=== PATIENT | male | born 1995 | race Caucasian/White ===

== ENCOUNTER 2016-12-25 23:12 | Emergency (ER) | payer OTHER ==
[2016-12-26] MEDS ORDERED: NS 0.9% 1000 ML* 1,000 ML IV ONE (00:13)
[2016-12-26 00:34] LABS: Urine Bilirubin Negative (Negative); Urine Glucose Negative (Negative); Urine Nitrite Negative (Negative)
[2016-12-26 00:45] LABS: Hematocrit 48 % (42-52); Hemoglobin 16.4 g/dl (14.0-18.0); Mean Corpuscular HGB Conc 34 g/dl (31-36); Mean Corpuscular Hemoglobin 32 pg (27-31); Mean Corpuscular Volume 92 fL (80-94); Mean Platelet Volume 7 um3 (7.4-10.4); Red Blood Count 5.23 10^6/ul (4.0-5.4); Red Cell Distribution Width 13 % (10.5-15); White Blood Count 7.2 10^3/ul (3.5-10.8)
[2016-12-26 00:53] LABS: Benzodiazepine Urine Screen None Detected (None Detect)
[2016-12-26 01:03] LABS: ALT 9 U/L (7-52); AST 13 U/L (13-39); Acetaminophen < 15 mcg/mL; Albumin 5.2 g/dL (3.2-5.2); Alcohol < 10 mg/dL (<10); Alkaline Phosphatase 58 U/L (34-104); Anion Gap 7 mmol/L (2-11); BUN/Creatinine Ratio 9.3 (8-20); Blood Urea Nitrogen 9 mg/dL (6-24); CO2 Carbon Dioxide 26 mmol/L (22-32); Calcium 10.2 mg/dL (8.6-10.3); Chloride 106 mmol/L (101-111); EGFR African American 123.3 (>60); EGFR Non-African American 95.9 (>60); Globulin 2.7 g/dL (2-4); Glucose 128 mg/dL (70-100); Potassium 3.6 mmol/L (3.5-5.0); Salicylate < 2.50 mg/dL (<30); Sodium 139 mmol/L (133-145); Total Protein 7.9 g/dL (6.4-8.9)
[2016-12-26 01:13] LABS: TSH (Thyroid Stimulating Horm) 1.75 mcIU/mL (0.34-5.60)
--- NOTE | 2016-12-26 01:31 | ED ---
Coral Turner Thomas, scribed for Zander Viera MD on 12/26/16 at 0052 . Complex/Multi-Sys Presentation - HPI Summary HPI Summary: The pt is a 21 y/o M presenting to the ED complaining of messed up insides s/ p snorting 8 tablets of Adderall 40mg in the last 48 hours. He also reports taking Tylenol and codeine shortly prior to arrival. He denies SI at this time. When asked why he snorted the Adderall, he responds Im stupid. He additionally c/o back pains. He denies ever snorting Adderall before. He also reports recent marijuana use at an unspecified time. He describes his current level of pain 02/11. Pt denies any other complaints at this time. PMHx: seasonal allergies. PSHx: rotator cuff repair. SHx: smokeless tobacco, rare alcohol use. FHx: DM. - History Of Current Complaint Chief Complaint: EDChestPainROMI Time Seen by Provider: 12/26/16 00:09 Hx Obtained From: Patient, Family/Smalltalk Developer - girlfirend in room Onset/Duration: Lasting Hours - snorted Adderal in last 48 hours, Still Present Timing: Constant Aggravating Factor(s): None Alleviating Factor(s): None Associated Signs And Symptoms: Positive: Back Pain, Other - POS: snorting 8 tablets of 40mg Adderall over last 48 hours, "messed up insides" - Allergies/Home Medications Allergies/Adverse Reactions: Allergies Allergy/AdvReac Type Severity Reaction Status Date / Time Penicillins Allergy Hair Loss Verified 12/25/16 23:22 PMH/Surg Hx/FS Hx/Imm Hx Previously Healthy: No Cardiovascular History: Denies: Hx Myocardial Infarction Respiratory History: Reports: Hx Seasonal Allergies - Surgical History Surgery Procedure, Year, and Place: None - Immunization History Date of Tetanus Vaccine: unk Date of Influenza Vaccine: unk Infectious Disease History: No Infectious Disease History: Denies: Traveled Outside the [place] in Last 30 Days - Family History Known Family History: Positive: Other - POS: DM - Social History Alcohol Use: Occasionally Substance Use Type: Reports: Cocaine, Heroin, Marijuana Substance Use Comment - Amount & Last Used: snorted adderall and vicodin today Smoking Status (MU): Never Smoked Tobacco Review of Systems Negative: Fever Positive: Other - POS: "messed up insides", back pain Positive: Other - POS: snorted 8 tablets of 40mg adderall over last 48 hours. All Other Systems Reviewed And Are Negative: Yes Physical Exam Triage Information Reviewed: Yes Vital Signs On Initial Exam: Initial Vitals Temp Pulse Resp BP Pulse Ox 97.5 F 115 20 128/92 100 12/25/16 23:16 12/25/16 23:16 12/25/16 23:16 12/25/16 23:16 12/25/16 23:16 Vital Signs Reviewed: Yes Appearance: Positive: Well-Appearing, No Pain Distress Skin: Positive: Warm Head/Face: Positive: Normal Head/Face Inspection Eyes: Positive: SULAIMAN ENT: Positive: Hearing grossly normal Neck: Positive: Supple Respiratory/Lung Sounds: Positive: Breath Sounds Present Cardiovascular: Positive: RRR Abdomen Description: Positive: Nontender, Soft Bowel Sounds: Positive: Present Musculoskeletal: Positive: Strength/ROM Intact Neurological: Positive: Alert, Oriented to Person Place, Time - Tammy Coma Scale Coma Scale Total: 15 Diagnostics - Vital Signs Vital Signs Temp Pulse Resp BP Pulse Ox 12/25/16 23:22 97.5 F 115 20 128/92 100 12/25/16 23:16 97.5 F 115 20 128/92 100 - Laboratory Lab Results: Lab Results 12/26/16 12/26/16 Range/Units 00:25 00:35 WBC 7.2 (3.5-10.8) 10^3/ul RBC 5.23 (4.0-5.4) 10^6/ul Hgb 16.4 (14.0-18.0) g/dl Hct 48 (42-52) % MCV 92 (80-94) fL MCH 32 H (27-31) pg MCHC 34 (31-36) g/dl RDW 13 (10.5-15) % Plt Count 311 (150-450) 10^3/ul MPV 7 L (7.4-10.4) um3 Neut % (Auto) 73.2 (38-83) % Lymph % (Auto) 16.1 L (25-47) % [place] % (Auto) 8.0 (1-9) % Eos % (Auto) 2.2 (0-6) % Baso % (Auto) 0.5 (0-2) % Absolute Neuts (auto) 5.3 (1.5-7.7) 10^3/ul Absolute Lymphs (auto) 1.2 (1.0-4.8) 10^3/ul Absolute Monos (auto) 0.6 (0-0.8) 10^3/ul Absolute Eos (auto) 0.2 (0-0.6) 10^3/ul Absolute Basos (auto) 0 (0-0.2) 10^3/ul Absolute Nucleated RBC 0 10^3/ul Nucleated RBC % 0 Urine Color Straw Urine Appearance Clear Urine pH 8.0 (5-9) Ur Specific [place] 1.004 L (1.010-1.030) Urine Protein Negative (Negative) Urine Ketones Negative (Negative) Urine Blood Negative (Negative) Urine Nitrate Negative (Negative) Urine Bilirubin Negative (Negative) Urine Urobilinogen Negative (Negative) Ur Leukocyte Esterase Negative (Negative) Urine Glucose Negative (Negative) Result Diagrams: 12/26/16 00:35 12/26/16 00:35 Lab Statement: Any lab studies that have been ordered have been reviewed, and results considered in the medical decision making process. - EKG 23:28 Cardiac Rate: NL - 96 BPM EKG Interpretation: SR. APC. Complex Multi-Symp Course/Dx Assessment/Plan: The pt is a 21 y/o M presenting to the ED complaining of messed up insides s/p snorting 8 tablets of Adderall 40mg in the last 48 hours. He also reports taking Tylenol and codeine shortly prior to arrival. He denies SI at this time. When asked why he snorted the Adderall, he responds I m stupid. He additionally c/o back pains. He denies ever snorting Adderall before. He also reports recent marijuana use at an unspecified time. He describes his current level of pain 02/11. Pt denies any other complaints at this time. PMHx: seasonal allergies. PSHx: rotator cuff repair. SHx: smokeless tobacco, rare alcohol use. FHx: DM. Blood work shows Glucose 128. UA shows specific gravity 1.004. Urine toxicology reveals presumptive positive opiates, amphetamines, and cannabinoids. EKG reveals Sinus rhythm with APC. Patient is medically cleared for evaluation. Patient is signed out from Dr. Viera to Dr. Villa pending [facility]. - Diagnoses Provider Diagnoses: Drug overdose Discharge - Discharge Plan Condition: Fair Disposition: OTHER Discharge Disposition Comment: Signed out from Dr. Viera to Dr. Villa pending [facility]. Referrals: Non Staff,Doctor [Primary Care Provider] - The documentation as recorded by the Coral zhang Thomas accurately reflects the service I personally performed and the decisions made by , Zander Viera MD.
[2016-12-26 09:32] VITALS: BP 121/76
--- NOTE | 2016-12-26 09:36 | CONSULT ---
Consult Consult: Mr. Morin was seen on an earlier shift and medically cleared. He had snorted Vicodin due to the pain in his shoulder. He consistently denied SI while here but admitted that he was having substance abuse problems and wanted to get into counseling for that. He was seen by the [facility] who gave him resources and he was D /C'd in stable condition diagnosis of unintentional OD.
== END 2016-12-26 09:46 ==
LOC: ED 23:12
DX: T43.621A Poisoning by amphetamines, accidental (unintentional), initial encounter (principal); M54.9 Dorsalgia, unspecified; Y92.9 Unspecified place or not applicable
CPT/HCPCS: 36415; 80053; 80307; 80320; 80329; 81003; 84443; 84484; 85025; 93005; 99284; G0480

== ENCOUNTER 2017-01-11 03:10 | Emergency (ER) | payer OTHER ==
[2017-01-11] MEDS ORDERED: NS 0.9% 1000 ML* 2,000 ML IV ONE (03:12)
[2017-01-11] MEDS ORDERED: Metoprolol Tartrate IV* 1 MG/ML 5 ML VIAL IV ONE (03:32)
[2017-01-11 03:55] LABS: Hematocrit 44 % (42-52); Hemoglobin 14.8 g/dl (14.0-18.0); Mean Corpuscular HGB Conc 34 g/dl (31-36); Mean Corpuscular Hemoglobin 32 pg (27-31); Mean Corpuscular Volume 94 fL (80-94); Mean Platelet Volume 7 um3 (7.4-10.4); Red Cell Distribution Width 13 % (10.5-15); White Blood Count 18.3 10^3/ul (3.5-10.8)
[2017-01-11 04:06] LABS: ALT 36 U/L (7-52); AST 40 U/L (13-39); Albumin 4.6 g/dL (3.2-5.2); Alkaline Phosphatase 58 U/L (34-104); Anion Gap 7 mmol/L (2-11); BUN/Creatinine Ratio 14.9 (8-20); Blood Urea Nitrogen 17 mg/dL (6-24); CO2 Carbon Dioxide 27 mmol/L (22-32); Calcium 8.9 mg/dL (8.6-10.3); Chloride 103 mmol/L (101-111); Creatine Kinase 55 U/L (10-223); EGFR African American 102.4 (>60); EGFR Non-African American 79.6 (>60); Globulin 2.2 g/dL (2-4); Glucose 425 mg/dL (70-100); Potassium 4.7 mmol/L (3.5-5.0); Sodium 137 mmol/L (133-145); Total Protein 6.8 g/dL (6.4-8.9)
[2017-01-11 04:13] LABS: Acetaminophen < 15 mcg/mL; Alcohol < 10 mg/dL (<10); Salicylate < 2.50 mg/dL (<30)
[2017-01-11 04:20] LABS: C Reactive Protein < 1.00 mg/L (< 5.00)
[2017-01-11 07:02] VITALS: BP 107/65
--- NOTE | 2017-01-11 07:32 | ED ---
Rizwana Turner Emily, scribed for Renato Wright MD on 01/11/17 at 0429 . Substance Abuse/Use - HPI Summary HPI Summary: LEVEL 5 CAVEAT - SUBSTANCE OD This patient is a 21 year old M BIBA to [facility] with a substance OD, most likely heroin. According to warp yarn sorter: Patient took 2 lines of heroin up the nose. He was found on floor unresponsive. 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 Patient says he has not used heroine in a long time, and he does not inject it. - History Of Current Complaint Chief Complaint: EDSubstanceAbuse Stated Complaint: OVERDOSE Time Seen by Provider: 01/11/17 03:12 Hx From Patient Unobtainable Due To: Other - Substance OD - Allergies/Home Medications Allergies/Adverse Reactions: Allergies Allergy/AdvReac Type Severity Reaction Status Date / Time Penicillins Allergy Hair Loss Verified 12/25/16 23:22 PMH/Surg Hx/FS Hx/Imm Hx Previously Healthy: No - LEVEL 5 CAVEAT - SUBSTANCE OD Cardiovascular History: Denies: Hx Myocardial Infarction Respiratory History: Reports: Hx Seasonal Allergies - Surgical History Surgery Procedure, Year, and Place: None - Immunization History Date of Tetanus Vaccine: unk Date of Influenza Vaccine: unk Infectious Disease History: Denies: Traveled Outside the [place] in Last 30 Days - Family History Known Family History: Positive: Other - POS: DM Family History: LEVEL 5 CAVEAT - SUBSTANCE OD - Social History Alcohol Use: Occasionally Substance Use Type: Reports: Cocaine, Heroin, Marijuana Substance Use Comment - Amount & Last Used: snorted adderall and vicodin today Smoking Status (MU): Never Smoked Tobacco Review of Systems - ROS Summary Review of Systems Summary: LEVEL 5 CAVEAT - SUBSTANCE OD All Other Systems Reviewed And Are Negative: No Physical Exam - Summary Physical Exam Summary: LEVEL 5 CAVEAT - SUBSTANCE OD The patient is well-nourished. Somnolent but arousable. The skin is warm and dry and skin color reflects adequate perfusion. HEENT: The head is normocephalic and atraumatic. The pupils are equal and reactive. Pupils are not pinpoint. The conjunctivae are clear and without drainage. Nares are patent and without drainage. Dry oral mucosa. The throat is without erythema and exudate. The external ears are intact. The ear canals are patent and without drainage. The tympanic membranes are intact. Neck is supple with full range of motion and non-tender. There are no carotid bruits. There is no neck vein distension. Respiratory: Chest is non-tender. Lungs are clear to auscultation and breath sounds are symmetrical and equal. Cardiovascular: Heart is regular rhythm. There is no murmur or rub auscultated. There is no peripheral edema and pulses are symmetrical and equal. Regular but fast heart rate. Decreased capillary refill. Abdomen: The abdomen is soft and non-tender. There are normal bowel sounds heard in all four quadrants and there is no organomegaly palpated. Musculoskeletal: There is no back pain noted. Extremities are non-tender with full range of motion. There is good capillary refill. There is no peripheral edema or calf tenderness elicited. Neurological: Unable to assess neurologically due to substance OD. Psychiatric: The patient has an appropriate affect and does not exhibit any anxiety or depression. Triage Information Reviewed: Yes Vital Signs On Initial Exam: Initial Vitals Temp Pulse Resp BP Pulse Ox 97.4 F 137 18 103/90 99 01/11/17 03:12 01/11/17 03:12 01/11/17 03:12 01/11/17 03:12 01/11/17 03:12 Vital Signs Reviewed: Yes - [place] Coma Scale Coma Scale Total: 15 Diagnostics - Vital Signs Vital Signs Temp Pulse Resp BP Pulse Ox 01/11/17 03:16 97.4 F 137 18 103/90 99 01/11/17 03:12 97.4 F 137 18 103/90 99 - Laboratory Lab Results: Lab Results 01/11/17 01/11/17 01/11/17 Range/Units 03:25 03:25 03:25 WBC 18.3 H (3.5-10.8) 10^3/ul RBC 4.70 (4.0-5.4) 10^6/ul Hgb 14.8 (14.0-18.0) g/dl Hct 44 (42-52) % MCV 94 (80-94) fL MCH 32 H (27-31) pg MCHC 34 (31-36) g/dl RDW 13 (10.5-15) % Plt Count 225 (150-450) 10^3/ul MPV 7 L (7.4-10.4) um3 Neut % (Auto) 88.9 H (38-83) % Lymph % (Auto) 6.1 L (25-47) % [place] % (Auto) 4.1 (1-9) % Eos % (Auto) 0.8 (0-6) % Baso % (Auto) 0.1 (0-2) % Absolute Neuts (auto) 16.2 H (1.5-7.7) 10^3/ul Absolute Lymphs (auto) 1.1 (1.0-4.8) 10^3/ul Absolute Monos (auto) 0.8 (0-0.8) 10^3/ul Absolute Eos (auto) 0.1 (0-0.6) 10^3/ul Absolute Basos (auto) 0 (0-0.2) 10^3/ul Absolute Nucleated RBC 0.01 10^3/ul Nucleated RBC % 0 INR (Anticoag Therapy) (0.89-1.11) Sodium 137 (133-145) mmol/L Potassium 4.7 (3.5-5.0) mmol/L Chloride 103 (101-111) mmol/L Carbon Dioxide 27 (22-32) mmol/L Anion Gap 7 (2-11) mmol/L BUN 17 (6-24) mg/dL Creatinine 1.14 (0.67-1.17) mg/dL Est GFR ( Amer) 102.4 (>60) Est GFR (Non-Af Amer) 79.6 (>60) BUN/Creatinine Ratio 14.9 (8-20) Glucose 425 H (70-100) mg/dL Lactic Acid 2.8 H* (0.5-2.0) mmol/L Calcium 8.9 (8.6-10.3) mg/dL Total Bilirubin 0.30 (0.2-1.0) mg/dL AST 40 H (13-39) U/L ALT 36 (7-52) U/L Alkaline Phosphatase 58 (34-104) U/L Total Creatine Kinase 55 (10-223) U/L Troponin I 0.00 (<0.04) ng/mL C-Reactive Protein < 1.00 (< 5.00) mg/L B-Natriuretic Peptide ( - 100) pg/mL Total Protein 6.8 (6.4-8.9) g/dL Albumin 4.6 (3.2-5.2) g/dL Globulin 2.2 (2-4) g/dL Albumin/Globulin Ratio 2.1 (1-3) Salicylates < 2.50 (<30) mg/dL Acetaminophen < 15 mcg/mL Serum Alcohol < 10 (<10) mg/dL 01/11/17 01/11/17 Range/Units 03:25 03:25 WBC (3.5-10.8) 10^3/ul RBC (4.0-5.4) 10^6/ul Hgb (14.0-18.0) g/dl Hct (42-52) % MCV (80-94) fL MCH (27-31) pg MCHC (31-36) g/dl RDW (10.5-15) % Plt Count (150-450) 10^3/ul MPV (7.4-10.4) um3 Neut % (Auto) (38-83) % Lymph % (Auto) (25-47) % [place] % (Auto) (1-9) % Eos % (Auto) (0-6) % Baso % (Auto) (0-2) % Absolute Neuts (auto) (1.5-7.7) 10^3/ul Absolute Lymphs (auto) (1.0-4.8) 10^3/ul Absolute Monos (auto) (0-0.8) 10^3/ul Absolute Eos (auto) (0-0.6) 10^3/ul Absolute Basos (auto) (0-0.2) 10^3/ul Absolute Nucleated RBC 10^3/ul Nucleated RBC % INR (Anticoag Therapy) 1.00 (0.89-1.11) Sodium (133-145) mmol/L Potassium (3.5-5.0) mmol/L Chloride (101-111) mmol/L Carbon Dioxide (22-32) mmol/L Anion Gap (2-11) mmol/L BUN (6-24) mg/dL Creatinine (0.67-1.17) mg/dL Est GFR ( Amer) (>60) Est GFR (Non-Af Amer) (>60) BUN/Creatinine Ratio (8-20) Glucose (70-100) mg/dL Lactic Acid (0.5-2.0) mmol/L Calcium (8.6-10.3) mg/dL Total Bilirubin (0.2-1.0) mg/dL AST (13-39) U/L ALT (7-52) U/L Alkaline Phosphatase (34-104) U/L Total Creatine Kinase (10-223) U/L Troponin I (<0.04) ng/mL C-Reactive Protein (< 5.00) mg/L B-Natriuretic Peptide 31 ( - 100) pg/mL Total Protein (6.4-8.9) g/dL Albumin (3.2-5.2) g/dL Globulin (2-4) g/dL Albumin/Globulin Ratio (1-3) Salicylates (<30) mg/dL Acetaminophen mcg/mL Serum Alcohol (<10) mg/dL Result Diagrams: 01/11/17 03:25 01/11/17 03:25 Lab Statement: Any lab studies that have been ordered have been reviewed, and results considered in the medical decision making process. - Radiology CXR Xray Interpretation: No Acute Changes - Nml, unchanged from previous CXR, no active disease, and no PNA or PTX. Radiology Interpretation Completed By: ED Physician - EKG 0317 EKG Rhythm: Atrial Fibrillation - At 128 BPM. EKG Interpretation: Rapid ventricular response. 0342 Cardiac Rate: Tachycardia - 103 BPM EKG Rhythm: Sinus Rhythm EKG Interpretation: Non-specific ST changes Re-Evaluation - Re-Evaluation First Eval Re-Evaluation Time: 04:12 Change: Improved Comment: Patient was alert and conversing. States feeling better. Second Eval Re-Evaluation Time: 06:50 Change: Improved Comment: Discussed dispo with patient. Course/Dx - Course Course Of Treatment: This patient is a 21 year old M BIBA to [facility] with a substance OD, most likely heroin. According to warp yarn sorter: Patient took 2 lines of heroin up the nose. He was found on floor unresponsive. 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 Patient says he has not used heroine in a long time, and he does not inject it. Physical Exam Findings. Pupils not pinpoint. Somnolent but arousable. Dry oral mucosa. Regular but fast heart rate. Decreased capillary refill. Unable to assess neurologically. Medical Decision Making. An EKG at 0317 reveals A-fib at 128 with rapid ventricular response. An EKG at 0342 reveals sinus tachycardia at 103 BPM with non-specific ST changes. Patient had a run of A-Fib most likely due to withdrawl. CXR read by ED physician is nml, unchanged from previous CXR, no active disease, and no PNA or PTX. In the ED course the patient was given Lopressor IV and fluids. Patient will be discharged with follow up from [facility] [place] referral. The patient is agreeable with this plan. - Diagnoses Provider Diagnoses: Heroin overdose, Atrial fibrillation, Opioid withdrawal Discharge - Discharge Plan Condition: Stable Disposition: HOME Patient Education Materials: A-fib (Atrial Fibrillation) (ED), Narcotic Abuse ( ED), Adult Overdose (ED) Referrals: [facility] PHYSICIAN REFERRAL [Outside] Non Staff,Doctor [Primary Care Provider] - Additional Instructions: Establish and follow up with a primary care provider within the week. Please return to the ED if you experience new or worsening symptoms. The documentation as recorded by the Rizwana zhang Emily accurately reflects the service I personally performed and the decisions made by , Renato Wright MD.
--- NOTE | 2017-01-11 08:58 | RAD ---
INDICATION: Drug overdose COMPARISON: Similar chest x-ray dated October 12, 2012 TECHNIQUE: Single AP portable view of the chest was obtained. FINDINGS: Image quality is compromised due to the relative inferiority of a portable chest x-ray. The heart and mediastinum exhibit normal size and contour. The lungs are grossly clear. There is no evidence of a large pleural effusion. Visualized bones are normal for the patient's age. IMPRESSION: No radiographic evidence for acute cardiopulmonary abnormality on this portable chest x-ray.
== END 2017-01-11 07:03 | disposition home or self-care (01) ==
LOC: ED 03:10
DX: T40.1X1A Poisoning by heroin, accidental (unintentional), initial encounter (principal); Y92.9 Unspecified place or not applicable; I48.91 Unspecified atrial fibrillation; F11.23 Opioid dependence with withdrawal
CPT/HCPCS: 36415; 71010; 80053; 80320; 80329; 82550; 83605; 83880; 84484; 85025; 85610; 86140; 93005; 96360; 99283; G0480

== ENCOUNTER 2017-04-27 20:50 | Emergency (ER) | payer SELFPAY ==
[2017-04-27] MEDS ORDERED: NS 0.9% 1000 ML* 1,000 ML IV SCH (21:00)
[2017-04-27] MEDS: NS 0.9% 1000 ML* 2,000 ML IV ONE (21:34)
[2017-04-27 21:36] LABS: ABS Basophils 0 10^3/ul (0-0.2); ABS Eosinophils 0.2 10^3/ul (0-0.6); ABS Lymphocytes 1.1 10^3/ul (1.0-4.8); ABS Monocytes 0.6 10^3/ul (0-0.8); ABS Neutrophils 10.3 10^3/ul (1.5-7.7); ABS Nucleated RBC 0 10^3/ul; Eosinophil % 1.5 % (0-6); Hematocrit 42 % (42-52); Hemoglobin 14.1 g/dl (14.0-18.0); Mean Corpuscular HGB Conc 34 g/dl (31-36); Mean Corpuscular Hemoglobin 31 pg (27-31); Mean Corpuscular Volume 93 fL (80-94); Mean Platelet Volume 7 um3 (7.4-10.4); Nucleated Red Blood Cells % 0; Platelet Count 285 10^3/ul (150-450); Red Cell Distribution Width 13 % (10.5-15); White Blood Count 12.2 10^3/ul (3.5-10.8)
[2017-04-27 21:49] LABS: EGFR Non-African American 98.2 (>60)
--- NOTE | 2017-04-27 22:27 | ED ---
Gualberto Turner Tecjoon, scribed for Jose Roberto Decker MD on 04/27/17 at 2107 . Substance Abuse/Use - HPI Summary HPI Summary: This patient is a 21 year old male BIBA to [facility] with concerns of an opioid overdose. Patient was found on the floor, not breathing. He states that he took a 30 mg oxymorphone hydrochloride pill a few hours ago when he began to feel extremely tired. Patient does not remember anything afterwards. EMS states that 2 mg Narcan relieved him and at time of exam, he was awake and alert, if slightly tachycardic. Patient denies any myalgia, trauma from fall, or any discrete pain. - History Of Current Complaint Stated Complaint: OVERDOSE Hx Obtained From: Patient Onset/Duration of Drug/ETOH Abuse: Hours Overdose Characteristics: Oral Character: Lethargic Alleviating Factor(s): Medication - Narcan Associated Signs And Symptoms: Negative - any discrete pain, myalgia, trauma from fall, Other: - tachycardia - Allergies/Home Medications Allergies/Adverse Reactions: Allergies Allergy/AdvReac Type Severity Reaction Status Date / Time Penicillins Allergy Hair Loss Verified 12/25/16 23:22 PMH/Surg Hx/FS Hx/Imm Hx Previously Healthy: Yes Cardiovascular History: Denies: Hx Myocardial Infarction Respiratory History: Reports: Hx Seasonal Allergies Opthamlomology History: Denies: Hx Legally Blind EENT History: Denies: Hx Deafness - Surgical History Surgery Procedure, Year, and Place: None - Immunization History Date of Tetanus Vaccine: unk Date of Influenza Vaccine: unk - Family History Known Family History: Positive: Other - POS: DM - Social History Alcohol Use: Occasionally Substance Use Type: Reports: Cocaine, Heroin, Marijuana Hx Tobacco Use: No Smoking Status (MU): Never Smoked Tobacco Do You Chew or Dip Tobacco: No Review of Systems Negative: Fever Positive: Other - tachycardic Negative: Myalgia All Other Systems Reviewed And Are Negative: Yes Physical Exam - Summary Physical Exam Summary: General: awake, alert Skin: warm, color reflects adequate perfusion, dry Head: normal Eyes: Pupils 2mm minimally reactive ENT: normal Neck: supple, nontender Respiratory: CTA, breath sounds present Cardiovascular: Tachycardic, Regular Rhythm Abdomen: soft, nontender Bowel: present Musculoskeletal: normal, strength/ROM intact Neurological: normal, sensory/motor intact, A&O x3 Psychological: affect/mood appropriate Triage Information Reviewed: Yes Vital Signs On Initial Exam: Initial Vitals Temp Pulse Resp BP Pulse Ox 97.2 F 104 12 122/88 100 04/27/17 21:01 04/27/17 21:01 04/27/17 21:01 04/27/17 21:01 04/27/17 21:01 Vital Signs Reviewed: Yes Diagnostics - Vital Signs Vital Signs Temp Pulse Resp BP Pulse Ox 04/27/17 21:03 107 11 100 04/27/17 21:02 122/88 04/27/17 21:01 97.2 F 104 12 122/88 100 - Laboratory Lab Results: Lab Results 04/27/17 04/27/17 04/27/17 Range/Units 21:25 21:25 21:25 WBC 12.2 H (3.5-10.8) 10^3/ul RBC 4.50 (4.0-5.4) 10^6/ul Hgb 14.1 (14.0-18.0) g/dl Hct 42 (42-52) % MCV 93 (80-94) fL MCH 31 (27-31) pg MCHC 34 (31-36) g/dl RDW 13 (10.5-15) % Plt Count 285 (150-450) 10^3/ul MPV 7 L (7.4-10.4) um3 Neut % (Auto) 84.6 H (38-83) % Lymph % (Auto) 9.0 L (25-47) % [place] % (Auto) 4.6 (1-9) % Eos % (Auto) 1.5 (0-6) % Baso % (Auto) 0.3 (0-2) % Absolute Neuts (auto) 10.3 H (1.5-7.7) 10^3/ul Absolute Lymphs (auto) 1.1 (1.0-4.8) 10^3/ul Absolute Monos (auto) 0.6 (0-0.8) 10^3/ul Absolute Eos (auto) 0.2 (0-0.6) 10^3/ul Absolute Basos (auto) 0 (0-0.2) 10^3/ul Absolute Nucleated RBC 0 10^3/ul Nucleated RBC % 0 Sodium 134 (133-145) mmol/L Potassium 3.2 L (3.5-5.0) mmol/L Chloride 99 L (101-111) mmol/L Carbon Dioxide 28 (22-32) mmol/L Anion Gap 7 (2-11) mmol/L BUN 9 (6-24) mg/dL Creatinine 0.95 (0.67-1.17) mg/dL Est GFR ( Amer) 126.4 (>60) Est GFR (Non-Af Amer) 98.2 (>60) BUN/Creatinine Ratio 9.5 (8-20) Glucose 147 H (70-100) mg/dL Lactic Acid 2.1 H* (0.5-2.0) mmol/L Calcium 8.9 (8.6-10.3) mg/dL Total Bilirubin 0.40 (0.2-1.0) mg/dL AST 26 (13-39) U/L ALT 22 (7-52) U/L Alkaline Phosphatase 62 (34-104) U/L Total Protein 7.3 (6.4-8.9) g/dL Albumin 4.7 (3.2-5.2) g/dL Globulin 2.6 (2-4) g/dL Albumin/Globulin Ratio 1.8 (1-3) Salicylates < 2.50 (<30) mg/dL Acetaminophen < 15 mcg/mL Serum Alcohol 49 H (<10) mg/dL Result Diagrams: 04/27/17 21:25 04/27/17 21:25 Lab Statement: Any lab studies that have been ordered have been reviewed, and results considered in the medical decision making process. - EKG 2106 Cardiac Rate: Tachycardia EKG Rhythm: Sinus Tachycardia - [address] Segment: Normal Ectopy: None Course/Dx - Course Course Of Treatment: This patient is a 21 year old male BIBA to [facility] with concerns of an opioid overdose. Patient was found on the floor, not breathing. He states that he took a 30 mg oxymorphone hydrochloride pill a few hours ago when he began to feel extremely tired. Patient does not remember anything afterwards. EMS states that 2 mg Narcan relieved him and at time of exam, he was awake and alert, if slightly tachycardic. An EKG reveals 2106, sinus tachycardia (106 BPM), normal ST, no ectopy. Bloodwork Obtained. Urinalysis Obtained. Medication reviewed. Allergies noted. POISON CONTROL CONSULTED. THEY RECOMMEND 24 HOUR OBSERVATION WITH MORE CARE FOR THE 1ST 6 HOURS AFTER NARCAN GIVE. I DISCUSSED THIS WITH THE PATIENT. HE DECLINES 24 HOUR OBSERVATION BUT AGREES TO BE WATCHED FOR 6 HOURS. DISPOSITION PENDING AT SHIFT CHANGE. NO CRITICAL CARE TIME. - Diagnoses Provider Diagnoses: Opiate overdose Discharge - Discharge Plan Condition: Stable Disposition: HOME Patient Education Materials: Narcotic Abuse (ED) Referrals: Non Staff,Doctor [Primary Care Provider] - [facility] [Outside] [facility] [Outside] Additional Instructions: FOLLOW UP WITH YOUR DOCTOR. RETURN TO THE EMERGENCY DEPARTMENT FOR ANY WORSENING OF YOUR CONDITION OR QUESTIONS OR CONCERNS. The documentation as recorded by the Gualberto zhang Tecjoon accurately reflects the service I personally performed and the decisions made by me, Jose Roberto Decker MD.
[2017-04-28 01:48] VITALS: BP 104/53
--- NOTE | 2017-04-28 01:51 | ED ---
Coral Turner Thomas, scribed for Александр Couch MD on 04/28/17 at 0150 . Progress - Progress Note Progress Note: The patient is a sign out from Dr. Decker at shift change. The patient has been stable over the last five hours in the ED. He will be discharged home with follow up at his primary care provider. Condition at discharge is stable. Course/Dx - Diagnoses Provider Diagnoses: Opiate overdose The documentation as recorded by the Coral zhang Thomas accurately reflects the service I personally performed and the decisions made by Iza gao Abdul, MD.
== END 2017-04-28 02:04 | disposition home or self-care (01) ==
LOC: ED 20:50
DX: T40.2X1A Poisoning by other opioids, accidental (unintentional), initial encounter (principal); Y92.9 Unspecified place or not applicable; Z88.0 Allergy status to penicillin
CPT/HCPCS: 36415; 80053; 80320; 80329; 83605; 85025; 93005; 96360; 99283; G0480

== ENCOUNTER 2018-07-27 01:56 | Emergency (ER) | payer SELFPAY ==
--- NOTE | 2018-07-27 02:11 | ED ---
Substance Abuse/Use - HPI Summary HPI Summary: This patient is a 22 year old M brought in by police and ambulance to [facility] with a chief complaint of overdose that occurred [employer]. The patient rates the pain 0/10 in severity. Symptoms aggravated by nothing. Symptoms alleviated by nothing. Patient reports a toothache. Patient states he took 30 mg of his friend s oxycodone. He stated the pill had an M on it. Per EMS, when they arrived on scene, the patient was not breathing. Per EMS, patient received Narcan [employer]. - History Of Current Complaint Chief Complaint: EDOverdose Stated Complaint: OVERDOSE PER EMS Time Seen by Provider: 07/27/18 02:00 Hx Obtained From: Patient Ingestion History: Type/Name Of Drug - Oxycodone Overdose Characteristics: Oral Aggravating Factor(s): Nothing Alleviating Factor(s): Nothing Associated Signs And Symptoms: Other: - Toothache - Allergies/Home Medications Allergies/Adverse Reactions: Allergies Allergy/AdvReac Type Severity Reaction Status Date / Time Penicillins Allergy Hair Loss Verified 07/27/18 03:13 Home Medications: Home Medications NK [No Home Medications Reported] 07/27/18 [History Confirmed 07/27/18] PMH/Surg Hx/FS Hx/Imm Hx Previously Healthy: No Cardiovascular History: Denies: Hx Myocardial Infarction Respiratory History: Reports: Hx Seasonal Allergies Sensory History: Denies: Hx Legally Blind, Hx Deafness Opthamlomology History: Denies: Hx Legally Blind - Surgical History Surgery Procedure, Year, and Place: None - Immunization History Date of Tetanus Vaccine: unk Date of Influenza Vaccine: unk Infectious Disease History: No Infectious Disease History: Denies: Traveled Outside the [place] in Last 30 Days - Family History Known Family History: Positive: Other - POS: DM - Social History Occupation: Student Lives: Alone Alcohol Use: Occasionally Substance Use Type: Reports: Cocaine, Heroin, Marijuana Substance Use Comment - Amount & Last Used: hx cocaine and heroin Hx Tobacco Use: No Smoking Status (MU): Never Smoked Tobacco Review of Systems Negative: Fever ENT: Other - Positive toothache All Other Systems Reviewed And Are Negative: Yes Physical Exam - Summary Physical Exam Summary: VITAL SIGNS: Reviewed. GENERAL: Patient is a well-developed and nourished male who is lying comfortable in the stretcher. Patient is not in any acute respiratory distress. HEAD AND FACE: No signs of trauma. No ecchymosis, hematomas or skull depressions. No sinus tenderness. EYES: PERRLA, EOMI x 2, No injected conjunctiva, no nystagmus. EARS: Hearing grossly intact. Ear canals and tympanic membranes are within normal limits. MOUTH: Oropharynx within normal limits. NECK: Supple, trachea is midline, no adenopathy, no JVD, no carotid bruit, no c- spine tenderness, neck with full ROM. CHEST: Symmetric, no tenderness at palpation LUNGS: Clear to auscultation bilaterally. No wheezing or crackles. CVS: Regular rate and rhythm, S1 and S2 present, no murmurs or gallops appreciated. ABDOMEN: Soft, non-tender. No signs of distention. No rebound no guarding, and no masses palpated. Bowel sounds are normal. EXTREMITIES: FROM in all major joints, no edema, no cyanosis or clubbing. NEURO: Alert and oriented x 3. No acute neurological deficits. Speech is normal and follows commands. SKIN: Dry and warm Triage Information Reviewed: Yes Vital Signs On Initial Exam: Initial Vitals Temp Pulse Resp BP Pulse Ox 98.3 F 95 20 134/89 98 07/27/18 01:57 07/27/18 01:57 07/27/18 01:57 07/27/18 01:57 07/27/18 01:57 Vital Signs Reviewed: Yes Diagnostics - Vital Signs Vital Signs Temp Pulse Resp BP Pulse Ox 07/27/18 01:57 98.3 F 95 20 134/89 98 - Laboratory Lab Statement: Any lab studies that have been ordered have been reviewed, and results considered in the medical decision making process. Course/Dx - Course Course Of Treatment: This patient is a 22 year old M brought in by police and ambulance to [facility] with a chief complaint of overdose that occurred [employer]. Physical Exam Findings: Nml. Patient remained stable in the emergency room. Patient will be discharged with follow up from PCP. The patient is agreeable with this plan. - Diagnoses Provider Diagnoses: Substance abuse Discharge - Sign-Out/Discharge Documenting (check all that apply): Patient Departure - Discharge home Patient Received Moderate/Deep Sedation with Procedure: No - Discharge Plan Condition: Stable Disposition: HOME Patient Education Materials: Adult Overdose (ED) Referrals: [facility] [place] [facility] [Outside] Additional Instructions: RETURN TO THE EMERGENCY DEPARTMENT FOR NEW OR WORSENING SYMPTOMS - Attestation Statements Document Initiated by Christine: Yes Documenting Scribe: Armida Wagoner Provider For Whom Scribe is Documenting (Include Credential): Dr. Александр Couch MD Scribe Attestation: I, Armida Wagoner, scribed for Dr. Александр Couch MD on 07/27/18 at 0400. Status of Scribe Document: Ready
[2018-07-27 04:42] VITALS: BP 103/57
== END 2018-07-27 04:41 | disposition home or self-care (01) ==
LOC: ED 01:56
DX: F11.10 Opioid abuse, uncomplicated (principal); K08.89 Other specified disorders of teeth and supporting structures; Z88.0 Allergy status to penicillin
CPT/HCPCS: 99282